=== PATIENT | male | born 1985 | race African-American/Black ===

== ENCOUNTER 2022-07-21 10:13 | Emergency (ER) | payer SELFPAY ==
--- NOTE | 2022-07-21 10:20 | ED.MALEGU ---
HPI - Male Genitourinary General Chief complaint: Urogenital-Male Stated complaint: STD Exposure Time Seen by Provider: 07/21/22 10:20 Source: patient and RN notes reviewed History of Present Illness HPI Narrative: Patient is a 37-year-old male who presents to urgent care with complaints of exposure to trick by his ?lady friend?. Patient states he was told within the last couple days that she was positive for Trichomonas. Patient is not having any penile discharge or pain. Denies any urinary symptoms. No other acute complaints. No acute distress noted. Patient aware of the plan of care. Some parts of this dictation were generated by voice recognition software and may contain typographical and/or grammatical inaccuracies. Related Data Home Medications Medication Instructions Recorded Confirmed lisinopril 10 mg tablet 10 mg PO DAILY 07/21/22 07/21/22 Allergies Allergy/AdvReac Type Severity Reaction Status Date / Time No Known Allergies Allergy Verified 07/21/22 10:39 Review of Systems Review of Systems: CONSTITUTIONAL: Denies fever, chills, or sweats. EYES: Denies visual changes, redness, or discharge. ENT: Denies rhinorrhea, congestion, sore throat, or otalgia. CARDIOVASCULAR: Denies chest pain, palpitations, or edema. RESPIRATORY: Denies cough or dyspnea. GASTROINTESTINAL: Denies abdominal pain, nausea, vomiting, or diarrhea. GENITOURINARY: Denies dysuria or hematuria. SKIN: Denies rash or itching. MUSCULOSKELETAL: Denies back pain, joint pain, or myalgia. NEUROLOGIC: Denies headache, numbness, or weakness. All other systems reviewed are negative, except as documented in HPI. PMFSH Comments At the time of my signature, I reviewed and agree with the nursing past medical, surgical, social, and family history. There is no relevant family history pertinent to the patient complaint. Exam Narrative: GENERAL: This is a well-nourished, well-developed patient, in no apparent distress. HEAD: normocephalic, atraumatic. EYES: PERRL. Sclera clear/white. Vision is grossly intact. EARS: External ears normal NOSE: External nose normal with no obvious nasal discharge, nares without redness, no rhinorrhea. THROAT: Mucous membranes moist, posterior pharynx clear. NECK: Neck supple SKIN: warm, intact with no suspicious lesions or rash, good texture and turgor. NEURO: awake, alert, and oriented to person, place and time. There were no obvious focal neurologic abnormalities. EXTREMITIES: No clubbing, cyanosis, or edema. Course Course Level of Care: Express Care Visit Vital Signs Vital signs: Vital Signs Temperature 98.3 F 07/21/22 10:28 Pulse Rate 71 07/21/22 10:28 Respiratory Rate 20 07/21/22 10:28 Blood Pressure 183/110 H 07/21/22 10:28 Pulse Oximetry 99 07/21/22 10:28 Oxygen Delivery Room Air 07/21/22 10:28 Temperature 98.3 F 07/21/22 10:28 Pulse Rate 71 07/21/22 10:28 Respiratory Rate 20 07/21/22 10:28 Blood Pressure 183/110 H 07/21/22 10:28 Pulse Oximetry 99 07/21/22 10:28 Oxygen Delivery Room Air 07/21/22 10:28 Reviewed- Patient is informed that they may have pre-hypertension or hypertension based on a blood pressure reading in the department. I recommend the patient call the primary care provider listed on their discharge instructions or a physician of their choice this week to arrange follow-up for further evaluation of possible pre-hypertension or hypertension. MDM - Male Genitourinary MDM Narrative Medical decision making narrative: Explained to the patient that we will send out the culture for chlamydia, gonorrhea and Trichomonas. We will call as the results come in however it can take up to 1 week. Advised patient complete the medication as prescribed. You work only being treated for Trichomonas and therefore if anything comes back positive such as chlamydia or gonorrhea-he will need to follow up at the local health department for treatment or with your primary care
[2022-07-21 10:28] VITALS: BP 183/110; PULSE 71; RESP 20; TEMP 36.8; O2SAT 99
== END 2022-07-21 11:04 | disposition home or self-care (01) ==
PROVIDERS: Emergency Provider Nurse Practitioner Family
DX: Z20.2 Contact with and (suspected) exposure to infections with a predominantly sexual mode of transmission (principal)
CPT/HCPCS: 87491; 87591; 87661; 99214; G0463